=== PATIENT | male | born 1980 | race Caucasian/White ===

== ENCOUNTER 2020-04-30 07:13 | Emergency (ER) | payer OTHER ==
[~2020-04-30] VITALS: Ht 188 cm; Wt 103.5 kg
[2020-04-30 07:17] VITALS: BP 127/73
[2020-04-30] MEDS ORDERED: KETOROLAC 30 MG/1 ML ONE (07:45)
[2020-04-30] MEDS ORDERED: ONDANSETRON ODT 4 MG ONE (07:45)
--- NOTE | 2020-04-30 07:55 | NUR ---
SINUS CONGESTION, MYERS COUGH. MEDICATED NOTED ON JUN.
[2020-04-30] MEDS ORDERED: ONDANSETRON ODT 8 MG PO ONE (08:00)
[2020-04-30] MEDS ORDERED: KETOROLAC 30 MG/1 ML IM ONE (08:00)
== END 2020-04-30 08:51 | disposition home or self-care (01) ==
LOC: ED 08:48
DX: J06.9 Acute upper respiratory infection, unspecified (principal); Z20.822 Contact with and (suspected) exposure to COVID-19; B34.9 Viral infection, unspecified; R07.89 Other chest pain
CPT/HCPCS: 71045; 87635; 96372; 99284; J1885; Q0162